=== PATIENT | male | born 2000 | race Caucasian/White ===

== ENCOUNTER 2024-05-16 15:09 | Emergency (ER) | payer OTHER ==
[~2024-05-16] VITALS: Ht 175.3 cm; Wt 75.0 kg
[2024-05-16 15:17] VITALS: TEMP 98
[2024-05-16 19:00] VITALS: BP 130/70; PULSE 90; RESP 16; O2SAT 98
[2024-05-16] MEDS ORDERED: IBUP-1554 PO (19:07)
== END 2024-05-16 19:29 | disposition home or self-care (01) ==
LOC: EMS 15:09
DX: S20.229A Contusion of unspecified back wall of thorax, initial encounter (principal); V89.2XXA Person injured in unspecified motor-vehicle accident, traffic, initial encounter; Y93.89 Activity, other specified; Y92.410 Unspecified street and highway as the place of occurrence of the external cause; Y99.8 Other external cause status
CPT/HCPCS: 71101; 73502; 99284